=== PATIENT | male | born 1965 | race Caucasian/White ===

== ENCOUNTER 2020-10-30 13:59 | Emergency (ER) | payer SELFPAY ==
[~2020-10-30] VITALS: Ht 185.4 cm; Wt 81.6 kg
[~2020-10-30 13:59] MED LIST: HYDR-3326 PO
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
[2020-10-30] MEDS ORDERED: TDAP DIPH,PERTUSS,TET VAC/PF 0.5 ML DISP.SYRIN IM ONE ×2 (14:30→14:59)
[2020-10-30] MEDS ORDERED: CEFAZOLIN 1 G in IV DEXTROSE 5% 50 ML IV ONE (14:30)
[2020-10-30] MEDS ORDERED: CEFAZOLIN 1 G VIAL ONE (14:59)
[2020-10-30] MEDS ORDERED: LIDOCAINE HCL 2% 20 ML VIAL ONE (16:19)
[2020-10-30] MEDS ORDERED: CEPH500C2 PO (17:15)
--- NOTE | 2020-10-30 18:30 | NUR ---
Patient discharged to home in stable condition. Patient given tap card to return home. Written and verbal after care instructions given. Patient verbalizes understanding of instructions. Stressed follow up or return to ER for worsening s/s.
[2020-10-30 19:05] VITALS: BP 140/79
== END 2020-10-30 19:00 | disposition home or self-care (01) ==
LOC: ER 14:00
DX: S81.011A Laceration without foreign body, right knee, initial encounter (principal); Y08.02XA Assault by strike by baseball bat, initial encounter; Y93.89 Activity, other specified; Y92.89 Other specified places as the place of occurrence of the external cause; G89.29 Other chronic pain; F19.10 Other psychoactive substance abuse, uncomplicated
CPT/HCPCS: 12002; 70450; 72125; 73551; 73564; 73590; 90471; 90715; 96365; 99285; J0690; J3490; J7060; A4217; A4663